=== PATIENT | male | born 1955 | race African-American/Black ===

== ENCOUNTER 2018-11-24 00:53 | Inpatient (IN) | payer MEDICAID ==
[~2018-11-24] VITALS: Ht 170.2 cm; Wt 63.5 kg
[2018-11-24 03:03] LABS: BASOPHILS % 0.7 % (0.0-2.0); EOSINOPHILS % 0.8 % (0.0-5.0); HEMATOCRIT. 39.2 % (42.0-52.0); HEMOGLOBIN. 12.8 g/dL (14.0-18.0); LYMPHOCYTES % 32.6 % (20.0-50.0); MEAN CORPUSCULAR HEMOGLOBIN 28.2 pg (28.0-32.0); MEAN CORPUSCULAR VOLUME 86.4 fL (80.0-94.0); MEAN PLATELET VOLUME 7.9 fl (7.4-10.4); MONOCYTES % 9.6 % (2.0-8.0); NEUTROPHILS % 56.3 % (40.0-76.0); PLATELET 257 x1000/uL (130-400); RED BLOOD CELL COUNT 4.54 mill/uL (4.7-6.1); RED CELL DISTRIBUTION WIDTH 17.3 % (11.6-14.6)
[2018-11-24 03:08] LABS: CHLORIDE 108 mEq/L (98-107)
[2018-11-24 03:14] LABS: D-DIMER 0.34 mg/L FEU (<0.50); PARTIAL THROMBOPLASTIN TIME 25.3 sec (23.4-31.0); PROTHROMBIN TIME 10.5 sec (9.6-11.0)
[2018-11-24] MEDS ORDERED: ASPIRIN 325MG EC TABLET PO ONE (04:15)
[2018-11-24] MEDS ORDERED: ONDANSETRON HCL 4MG/2ML INJ IV PRN (08:30)
[2018-11-24] MEDS ORDERED: ACETAMINOPHEN 325MG TABLET PO PRN (08:30)
[2018-11-24 09:20] VITALS: BP 104/70
[2018-11-24 09:30] LABS: CLARITY URINE CLEAR (CLEAR); COLOR URINE YELLOW (YELLOW); KETONES URINE NEGATIVE (NEGATIVE); LEUKOCYTE ESTERASE URINE NEGATIVE (NEGATIVE); NITRITE URINE NEGATIVE (NEGATIVE); OCCULT BLOOD URINE NEGATIVE (NEGATIVE); PH URINE 5.5 (4.5-8.0); PROTEIN URINE NEGATIVE (NEGATIVE); SPECIFIC GRAVITY URINE 1.002 (1.005-1.030); UROBILINOGEN URINE 0.2 E.U./dL (0.2-1.0)
[2018-11-24 09:40] VITALS: BP 104/70
[2018-11-24 09:44] LABS: *AMPHETAMINES SCREEN URINE NEGATIVE (NEGATIVE); *BARBITURATES SCREEN URINE NEGATIVE (NEGATIVE); *BENZODIAZEPINES SCREEN URINE NEGATIVE (NEGATIVE)
[2018-11-24 09:45] LABS: *COCAINE SCREEN URINE PRESUMTIVE POSITIVE (NEGATIVE); CANNABINOID URINE SCREEN PRESUMTIVE POSITIVE (NEGATIVE); METHADONE URINE SCREEN NEGATIVE (NEGATIVE); OPIATES URINE SCREEN NEGATIVE (NEGATIVE); PHENCYCLIDINE URINE SCREEN NEGATIVE (NEGATIVE)
[2018-11-24] MEDS ORDERED: S350 MT (10:15)
[2018-11-24] MEDS ORDERED: METF-414 MT (10:15)
[2018-11-24] MEDS: ASPIRIN 81MG TABLET PO SCH (10:24)
[2018-11-24] MEDS: KETOROLAC 15MG/ML VIAL IV PRN (10:25)
[2018-11-24 12:00] VITALS: BP_SYST 104; BP_SYST 97; BP_DIAS 56; BP_DIAS 70
[2018-11-24 13:34] VITALS: BP 101/60
[2018-11-24 16:00] VITALS: BP 109/66
[2018-11-24 20:00] VITALS: BP 96/61
[2018-11-25] VITALS: BP 100/59
[2018-11-25 04:00] VITALS: BP 112/60
[2018-11-25] MEDS: KETOROLAC 15MG/ML VIAL IV PRN (04:57)
[2018-11-25 08:00] VITALS: BP 116/70
[2018-11-25] MEDS: ASPIRIN 81MG TABLET PO SCH (09:31)
[2018-11-25 12:00] VITALS: BP 100/68
[2018-11-25 16:00] VITALS: BP 94/61
[2018-11-25 20:00] VITALS: BP 99/58
[2018-11-26] VITALS: BP 102/65
[2018-11-26 04:00] VITALS: BP 107/65
[2018-11-26 08:00] VITALS: BP 114/65
[2018-11-26] MEDS: MULTIVITAMINS,THER W-MINERALS TABLET PO SCH (08:30)
[2018-11-26] MEDS: ASPIRIN 81MG TABLET PO SCH (08:30)
[2018-11-26 12:41] VITALS: BP 103/69
[2018-11-26 16:00] VITALS: BP 101/65
[2018-11-26 20:00] VITALS: BP 101/59
[2018-11-27] VITALS: BP 105/61
[2018-11-27 04:00] VITALS: BP 100/58
[2018-11-27 08:00] VITALS: BP 103/69
[2018-11-27] MEDS: MULTIVITAMINS,THER W-MINERALS TABLET PO SCH (08:29)
[2018-11-27] MEDS: ASPIRIN 81MG TABLET PO SCH (08:29)
[2018-11-27 12:00] VITALS: BP 99/72
[2018-11-27 14:20] VITALS: BP 99/72
== END 2018-11-27 14:48 | disposition home or self-care (01) | DRG 816 ==
LOC: ER 00:53 → 7WST 05:20 → ENRESERV 07:23
PROVIDERS: ADMIT Internal Medicine; ATTEND Internal Medicine
DX: T40.5X1A Poisoning by cocaine, accidental (unintentional), initial encounter (principal); E87.8 Other disorders of electrolyte and fluid balance, not elsewhere classified; D64.9 Anemia, unspecified; E11.9 Type 2 diabetes mellitus without complications; E78.5 Hyperlipidemia, unspecified; F17.210 Nicotine dependence, cigarettes, uncomplicated; I10 Essential (primary) hypertension; I25.2 Old myocardial infarction; Z71.6 Tobacco abuse counseling; Z71.51 Drug abuse counseling and surveillance of drug abuser; Y92.89 Other specified places as the place of occurrence of the external cause; Z79.899 Other long term (current) drug therapy
CPT/HCPCS: 36415; 71045; 80061; 80305; 83880; 84443; 84484; 85379; 93005; 93306; 93970; 97161; 99285; J1885

== ENCOUNTER 2023-11-29 20:01 | Emergency (ER) | payer MEDICAID ==
[~2023-11-29] VITALS: Ht 170.2 cm; Wt 62.0 kg
[~2023-11-29 20:01] MED LIST: CARI350T28 MT; METF-414 MT
[2023-11-29 20:07] VITALS: TEMP 97.9; O2SAT 100
[2023-11-29 22:33] VITALS: BP 130/61; PULSE 74; RESP 14
[2023-11-29] MEDS: KETOROLAC 30MG/ML VIAL IV STA (22:33)
[2023-11-29 23:05] LABS: BASOPHILS % 0.7 % (0.0-2.0); DIFFERENTIAL COMMENT 0; EOSINOPHILS % 0.8 % (0.0-5.0); HEMATOCRIT. 35.1 % (42.0-52.0); LYMPHOCYTES % 10.2 % (20.0-50.0); MEAN CORPUSCULAR HEMOGLOBIN 24.9 pg (28.0-32.0); MEAN CORPUSCULAR HGB CONC 31.5 g/dL (31.0-37.0); MEAN CORPUSCULAR VOLUME 78.9 fL (80.0-94.0); MEAN PLATELET VOLUME 6.9 fl (7.4-10.4); MONOCYTES % 8.3 % (2.0-8.0); PLATELET 308 x1000/uL (130-400); RED BLOOD CELL COUNT 4.44 mill/uL (4.7-6.1); RED CELL DISTRIBUTION WIDTH 18.9 % (11.6-14.6); WHITE BLOOD COUNT 7.7 x1000/uL (4.5-11.0)
[2023-11-29 23:08] LABS: CHLORIDE 107 mEq/L (98-107); SODIUM 140 mEq/L (136-145)
[2023-11-29 23:09] LABS: CARBON DIOXIDE 28 mEq/L (21-32)
[2023-11-29 23:14] LABS: GLUCOSE 74 mg/dL (70-105); UREA NITROGEN BLOOD 13 mg/dL (9-23)
[2023-11-29] MEDS ORDERED: TOPUD PO (23:30)
== END 2023-11-30 00:13 | disposition home or self-care (01) ==
LOC: ER 20:01
DX: R25.2 Cramp and spasm (principal); E11.9 Type 2 diabetes mellitus without complications; F12.10 Cannabis abuse, uncomplicated
CPT/HCPCS: 99283; 96374; 80048; 85025; 36415; J1885